=== PATIENT | female | born 1975 | race Caucasian/White ===

== ENCOUNTER 2020-10-10 16:27 | Outpatient (CLI) | payer OTHER, SELFPAY ==
--- NOTE | ~2020-10-10 | MM_ITS ---
EXAMINATION: MM screening avi BI w arjun HISTORY: Screening TECHNIQUE: Craniocaudal and mediolateral oblique 3-D tomosynthesis images were obtained and synthetic 2-D images were generated. CAD analysis was submitted and interpreted. COMPARISON: Comparison to multiple prior studies sequentially, with oldest reviewed study dated 02/18. BREAST PARENCHYMAL COMPOSITION: The breasts are heterogenously dense, which may obscure small masses FINDINGS: There is no evidence of suspicious mass, calcification, or architectural distortion to sugg est malignancy in either breast. There has been no suspicious interval change. IMPRESSION: 1. No mammographic evidence of malignancy. 2. Recommend routine screening mammography in one year. BI-RADS Category 1: Negative Reviewed, dictated and finalized at location A. 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
== END 2020-10-10 16:28 | disposition home or self-care (01) ==
LOC: ANHIMG 16:29
PROVIDERS: PCP Family Medicine; Visit Provider Obstetrics & Gynecology Gynecology
DX: Z12.31 Encounter for screening mammogram for malignant neoplasm of breast (principal)
CPT/HCPCS: 77063; 77067

== ENCOUNTER 2021-04-19 16:22 | Emergency (ER) | payer OTHER, SELFPAY ==
--- NOTE | ~2021-04-19 | CT_ITS ---
EXAMINATION: CT abdomen pelvis w con DATE: 04/19/2021 20:30 INDICATION: Abdominal pain TECHNIQUE: Computed tomography (CT) of the abdomen and pelvis was performed with 100 cc Omnipaque 350 intravenous contrast. The dose-length product was 202.01 mGy-cm. Automated exposure control and iterative reconstruction technique were employed. COMPARISON: CT dated 06/03/2019. FINDINGS: Lung bases are unremarkable. No significant pleural or pericardial effusion. There is abnor mal thickening of the gastric body and pylorus. No obstruction. No significant vascular abnormality. No free air or free fluid. Status post cholecystectomy. Fatty infiltration of the liver. The spleen, pancreas, adrenal glands an d kidneys are unremarkable. No significant vascular abnormality. Mildly enlarged left inguinal lymph node, likely reactive. IMPRESSION: 1. Abnormal thickening of the gastric wall, compatible with gastritis. 2: Left inguinal lymphadenopathy, likely reactive. Reviewed, dictated and finalized at location A.
[2021-04-19 16:31] VITALS: BP 132/75; PULSE 100; RESP 18; TEMP 36.4; O2SAT 97
[2021-04-19 17:13] LABS: Basophils Percent Auto 0.2 % (0.2-1.2); Hematocrit 47.9 % (37.0-47.0); Hemoglobin 16.3 g/dL (12.0-15.0); Immature Granulocyte Absolute 0.08 K/mm3 (0.00-0.031); Immature Granulocyte Percent A 0.5 % (0-0.5); Lymphocytes Absolute Auto 1.14 K/mm3 (0.9-3.2); Lymphocytes Percent Auto 7.1 % (18.3-44.2); Mean Corpuscular Hemoglobin 32.8 pg (26-34); Mean Corpuscular Volume 96.4 fl (80-100); Mean Platelet Volume 9.6 fl (7.4-10.4); Monocytes Absolute Auto 0.8 K/mm3 (0.1-0.6); Neutrophils Absolute Auto 14.1 K/mm3 (1.3-6.7); Neutrophils Percent Auto 87.2 % (45.5-73.1); Platelet Count Result 328 k/mm3 (150-375); Red Blood Count 4.97 M/mm3 (4.2-5.4); Red Cell Distribution Width 11.6 % (11.5-14.5); White Blood Count 16.1 K/mm3 (4.5-10.0)
[2021-04-19] MEDS: DICYCLOMINE HCL INJ 20 MG/2 ML VIAL IM (18:22)
[2021-04-19] MEDS: ONDANSETRON INJ 4 MG/2 ML VIAL IV PUSH ×2 (18:26→20:13)
[2021-04-19] MEDS: SODIUM CHLORIDE 0.9% IV 1,000 ML 999 ML IV CONT (18:26)
[2021-04-19 19:07] LABS: Add Urine Microscopic? YES; Appearance Urine Clear (Clear); Bilirubin Urine 1+ (Negative); Blood Urine Negative (Negative); Color Urine Amber (Yellow); Glucose Urine UA Negative (Negative); Ketones Urine 2+ mg/dL (Negative); Leukocyte Esterase Ur Negative LEU/UL (Negative); Mucus Urine Heavy /lpf; Nitrate Urine Negative (Negative); Protein Urine 3+ mg/dL (Negative); Specific Grav Ur 1.026 (1.001-1.035); Squamous Epithelial Cell Urine Many /hpf (Few); WBC Urine 0-3 /hpf
[2021-04-19 20:24] LABS: Estimated CRCL calculation 67 ml/min; Estimated Glomerular Filt Rate > 60
--- NOTE | 2021-04-19 20:32 | ED.GENADULT ---
HPI - General Adult General Chief complaint: Abdominal Pain Stated complaint: Vomting, epigastric pain Time Seen by Provider: 04/19/21 17:56 History of Present Illness HPI narrative: Patient is a 45-year-old female presents the emergency department with chief complaint of abdominal pain. Patient reports that she has had a fullness feeling in her lower esophagus and is afraid that she may have something stuck in her esophagus. Patient reports she is unable to swallow her own secretions reports that she has upper epigastric type pain with this reports she has had some nausea and vomiting denies diarrhea reports that she has had her gallbladder removed in the past patient denies prior food impactions. Related Data Allergies Allergy/AdvReac Type Severity Reaction Status Date / Time No Known Allergies Allergy Unverified 04/19/21 16:31 Review of Systems Review of Systems: A 10 system review of systems was completed on the patient and is negative except for what is stated in the HPI. Nursing and ancillary documentation was reviewed. Exam Narrative: GENERAL: Well-appearing, well-nourished, and in no acute distress. HEAD: Normocephalic, atraumatic. EYES: PERRLA and EOMI. ENT: Nares clear, no rhinorrhea or epistaxis. Mucous membranes moist. NECK: Supple. CHEST: Clear to auscultation. No respiratory distress. HEART: Regular rate and rhythm. No murmur heard. Normal peripheral pulses. ABDOMEN: Soft, diffuse mild tenderness to palpation, nondistended, normal active bowel sounds. EXTREMITIES: Normal range of motion. No edema. SKIN: Warm, dry, no rash. NEURO: No focal deficits. Alert and oriented x3. PSYCH: Normal mood and affect. Course Vital Signs Vital signs: Vital Signs Temperature 36.4 C L 04/19/21 16:31 Pulse Rate 100 04/19/21 16:31 Respiratory Rate 18 04/19/21 16:31 Blood Pressure 132/75 04/19/21 16:31 Pulse Oximetry 97 04/19/21 16:31 Temperature 36.4 C L 04/19/21 16:31 Pulse Rate 100 04/19/21 16:31 Respiratory Rate 18 04/19/21 16:31 Blood Pressure 132/75 04/19/21 16:31 Pulse Oximetry 97 04/19/21 16:31 Medical Decision Making Vital Signs Vital Signs: Vital Signs Temperature 36.4 C L 04/19/21 16:31 Pulse Rate 100 04/19/21 16:31 Respiratory Rate 18 04/19/21 16:31 Blood Pressure 132/75 04/19/21 16:31 Pulse Oximetry 97 04/19/21 16:31 Temperature 36.4 C L 04/19/21 16:31 Pulse Rate 100 04/19/21 16:31 Respiratory Rate 18 04/19/21 16:31 Blood Pressure 132/75 04/19/21 16:31 Pulse Oximetry 97 04/19/21 16:31 Lab Data Result diagrams: 04/19/21 16:56 04/19/21 20:22 Labs: Lab Results 04/19/21 04/19/21 04/19/21 Range/Units 16:56 18:31 20:02 WBC 16.1 H (4.5-10.0) K/mm3 RBC 4.97 (4.2-5.4) M/mm3 Hgb 16.3 H (12.0-15.0) g/dL Hct 47.9 H (37.0-47.0) % MCV 96.4 (80-100) fl MCH 32.8 (26-34) pg MCHC 34.0 (32-36) g/dl RDW 11.6 (11.5-14.5) % Plt Count 328 (150-375) k/mm3 MPV 9.6 (7.4-10.4) fl Immature Gran % (Auto) 0.5 (0-0.5) % Neut % (Auto) 87.2 H (45.5-73.1) % Lymph % (Auto) 7.1 L (18.3-44.2) % Ward % (Auto) 5.0 (2.6-8.5) % Eos % (Auto) 0.0 (0-4.4) % Baso % (Auto) 0.2 (0.2-1.2) % Lymph # (Auto) 1.14 (0.9-3.2) K/mm3 Ward # (Auto) 0.8 H (0.1-0.6) K/mm3 Eos # (Auto) 0.0 (0-0.3) K/mm3 Baso # (Auto) 0.0 (0.0-0.1) K/mm3 Abs Immat Gran (auto) 0.08 H (0.00-0.031) K/mm3 Absolute Neuts (auto) 14.1 H (1.3-6.7) K/mm3 Absolute Nucleated RBC 0.0 (0.0-0.012) K/mm3 Nucleated RBC % 0.0 (0.0-0.2) % Sodium 137 (137-145) mmol/L Potassium 3.5 (3.4-5.0) mmol/L Chloride 100 (98-107) mmol/L Carbon Dioxide 27 (22-30) mmol/L Anion Gap 10 (8-16) mmol/L BUN 10 (7-17) mg/dL Creatinine 0.70 (0.7-1.0) mg/dL Estim Creat Clear Calc 67 ml/min Estimated GFR > 60 (59 - ) Glucose 119 H (
--- NOTE | 2021-04-19 20:56 | PC.NURSE ---
Pt c/o increased nausea after CT. Rates abd pain 7/10, requesting pain medication. EDP notified.
[2021-04-19 21:04] LABS: Alanine Aminotransferase 15 U/L (4-35); Albumin Level 4.5 g/dL (3.5-5.1); Alkaline Phosphatase 82 U/L (38-126); Anion Gap 10 mmol/L (8-16); Aspartate Amino Transferase 27 U/L (14-36); Bilirubin,Total 0.3 mg/dL (0.2-1.3); Blood Urea Nitrogen 10 mg/dL (7-17); Calcium 9.4 mg/dL (8.4-10.2); Carbon Dioxide 27 mmol/L (22-30); Chloride 100 mmol/L (98-107); Estimated CRCL calculation 67 ml/min; Estimated Glomerular Filt Rate > 60; Glucose 119 mg/dL (65-110); Lipase 19 U/L (23-300); Potassium 3.5 mmol/L (3.4-5.0); Sodium 137 mmol/L (137-145)
[2021-04-19] MEDS: PROCHLORPERAZINE EDISYLATE 10 MG/2 ML VIAL IV PUSH (21:15)
[2021-04-19] MEDS: PANTOPRAZOLE SODIUM IV 40 MG VIAL IV PUSH (21:15)
[2021-04-19] MEDS: MORPHINE SULFATE (*CRX) 4 MG/ML INJ IV PUSH (21:15)
[2021-04-19 22:00] VITALS: BP 127/84; PULSE 62; RESP 16; O2SAT 94
== END 2021-04-19 22:00 | disposition home or self-care (01) ==
PROVIDERS: Emergency Medicine; Emergency Provider Emergency Medicine; PCP Family Medicine
DX: K29.00 Acute gastritis without bleeding (principal)
CPT/HCPCS: 36415; 74177; 80053; 81001; 81025; 83690; 85025; 96361; 96372; 96374; 96375; 96376; 99284; C9113; J0500; J0780; J2270; J2405; J7030; Q9967

== ENCOUNTER 2021-10-22 14:38 | Outpatient (CLI) | payer OTHER, SELFPAY ==
--- NOTE | ~2021-10-22 | MM_ITS ---
EXAMINATION: MM screening [facility] BI w arjun HISTORY: Screening mammogram TECHNIQUE: Craniocaudal and mediolateral oblique 3-D tomosynthesis images were obtained and synthetic 2-D images were generated. CAD analysis was submitted and interpreted. COMPARISON: 10/10/2020, 07/21/2019, 05/01/2018 BREAST PARENCHYMAL COMPOSITION: There are scattered areas of fibroglandular density. FINDINGS: There is no evidence of suspicious mass, calcification, or architectural distortion to sugg est malignancy in either breast. There has been no suspicious interval change. IMPRESSION: 1. No mammographic evidence of malignancy. 2. Recommend routine screening mammography in one year. BI-RADS Category 1: Negative Reviewed, dictated and finalized at location A.
== END 2021-10-22 14:39 | disposition home or self-care (01) ==
PROVIDERS: PCP Family Medicine; Visit Provider Obstetrics & Gynecology Gynecology
DX: Z12.31 Encounter for screening mammogram for malignant neoplasm of breast (principal)
CPT/HCPCS: 77063; 77067

== ENCOUNTER 2022-02-13 01:29 | Day surgery (SDC) | payer OTHER, SELFPAY ==
[2022-01-25 15:06] VITALS: BMI 22.5
[2022-02-13 09:32] VITALS: BP 120/75; PULSE 71; RESP 18; TEMP 36.6; O2SAT 99
[2022-02-13] MEDS: LACTATED RINGERS 1,000 ML 150 ML IV CONT (09:44)
--- NOTE | 2022-02-13 09:51 | P.PNAN_ITS ---
Anes - Initial Pre Proc Eval Procedure: Operation Date: 02/13/22 11:00 Proposed Procedures p Screening Colonoscopy - Juvencio Gan MD Date/Time: 02/13/22 09:51 Surgeon: Juvencio Gan MD Pre Op Diagnosis: neoplasm screening Patient Data Age: 46 Gender: F Height: 1.57 m Weight: 56.1 kg Last Vital Signs Temp 36.6 C 02/13/22 09:32 Pulse 71 02/13/22 09:32 Resp 18 02/13/22 09:32 BP 120/75 02/13/22 09:32 Pulse Ox 99 02/13/22 09:32 O2 Del Method Room Air 02/13/22 09:32 Allergies Allergy/AdvReac Type Severity Reaction Status Date / Time No Known Allergies Allergy Unverified 02/13/22 09:31 Home Medications Medication Instructions Recorded Confirmed Type atorvastatin 10 mg tablet (Lipitor) 10 tablet PO DAILY 01/25/22 01/25/22 History dextroamphetamine-amphetamine ER 10 cap PO DAILY 01/25/22 01/25/22 History 10 mg 24hr capsule,extend release (Adderall XR) lamotrigine 100 mg tablet 100 tablet PO 2XD 01/25/22 01/25/22 History (Lamictal) lurasidone 80 mg tablet (Latuda) 80 tablet PO DAILY 01/25/22 01/25/22 History oxybutynin chloride 5 mg 5 tablet PO DAILY 01/25/22 01/25/22 History tablet,extended release 24 hr (Ditropan XL) prazosin 2 mg capsule (Minipress) 2 cap PO DAILY 01/25/22 01/25/22 History trazodone 100 mg tablet 100 tablet PO DAILY 01/25/22 01/25/22 History vortioxetine 10 mg tablet 10 tablet PO DIRECTED 01/25/22 01/25/22 History (Trintellix) Patient hx anesthesia problems: none Family hx anesthesia problems: none Results Review: All pre-operative results and documents have been reviewed as part of the pre- operative evaluation. [facility] Past Medical History Medical History (Updated 02/13/22 @ 09:52 by Hola Bo MD) Hyperlipidemia Surgical History Surgical History (Updated 02/13/22 @ 09:52 by Hola Bo MD) H/O laparoscopy S/P cervical spinal fusion Social History Social History Smoking packs per day: 2 Smoking cigarettes per day: 40.0 Years smoked: 15 Smoking pack-years: 30.00 Smoking status: Former smoker Tobacco type: cigarettes Alcohol use details: Couple times a year Substance use: current Substance use type: marijuana Living arrangements: with family Spiritual care concerns: No Anes - Eval Final PreProcedure Day of Procedure 02/13/22 09:51 Patient weight: normal Heart: regular rate and rhythm Lungs: clear to auscultation Airway: Mallampati scale class II and special considerations poor extension Neurological: alert and oriented Last oral intake: >/= 8 hours ASA classification: II Emergent: no Anesthetic plan: proceed Anesthesia type and monitoring: general GIVS and standard monitoring Results Review: All pre-operative results and documents have been reviewed as part of the pre- operative evaluation. Informed Consent: The patient's anesthetic plan and its attendant risks and benefits were discussed with the patient/family/POA. Questions were solicited and answers provided to the satisfaction of the patient/family/POA.
--- NOTE | 2022-02-13 10:29 | PM.HPGS ---
History of Present Illness History of Present Illness Consent: Risks, benefits, and alternatives have been discussed and questions answered. Patient agrees to proceed with procedure. Chief complaint: neoplasm screening Narrative: Vilma Linn is a 46 year old female here for screening colonoscopy, had one 5 years ago Review of Systems Constitutional: Constitutional: Denies headache(s) and Denies weakness Eyes: Eyes: Denies blurry vision ENT: Reports Normal hearing present, Denies headache(s) and Denies neck pain Cardiovascular: Cardiovascular: Denies chest pain and Denies dyspnea Respiratory: Respiratory: Denies dyspnea Gastrointestinal: Gastrointestinal: Reports no additional gastrointestinal complaints Genitourinary: Genitourinary: Denies dysuria Musculoskeletal: Musculoskeletal: Denies neck pain Integumentary/Breasts: Skin/Breast: Denies dry skin Neurologic: Reports Normal hearing present, Denies headache(s) and Denies weakness Psychiatric: Psychiatric: Denies anxiety Endocrine: Endocrine: Denies change in body appearance Hematologic/Lymphatic: Hematologic/Lymphatic: Denies easy bleeding Allergic/Immunologic: Allergic/Immunologic: Denies urticaria PMFSH Past Medical History Medical History (Updated 02/13/22 @ 10:30 by Juvencio Gan MD) Colon cancer screening Hyperlipidemia Surgical History Surgical History (Updated 02/13/22 @ 09:52 by Hola Bo MD) H/O laparoscopy S/P cervical spinal fusion Social History Social History Smoking packs per day: 2 Smoking cigarettes per day: 40.0 Years smoked: 15 Smoking pack-years: 30.00 Smoking status: Former smoker Tobacco type: cigarettes Alcohol use details: Couple times a year Substance use: current Substance use type: marijuana Living arrangements: with family Spiritual care concerns: No Meds Home Medications and Allergies Home Medications Medication Instructions Recorded Confirmed Type atorvastatin 10 mg tablet (Lipitor) 10 tablet PO DAILY 01/25/22 01/25/22 History dextroamphetamine-amphetamine ER 10 cap PO DAILY 01/25/22 01/25/22 History 10 mg 24hr capsule,extend release (Adderall XR) lamotrigine 100 mg tablet 100 tablet PO 2XD 01/25/22 01/25/22 History (Lamictal) lurasidone 80 mg tablet (Latuda) 80 tablet PO DAILY 01/25/22 01/25/22 History oxybutynin chloride 5 mg 5 tablet PO DAILY 01/25/22 01/25/22 History tablet,extended release 24 hr (Ditropan XL) prazosin 2 mg capsule (Minipress) 2 cap PO DAILY 01/25/22 01/25/22 History trazodone 100 mg tablet 100 tablet PO DAILY 01/25/22 01/25/22 History vortioxetine 10 mg tablet 10 tablet PO DIRECTED 01/25/22 01/25/22 History (Trintellix) Allergies Allergy/AdvReac Type Severity Reaction Status Date / Time No Known Allergies Allergy Unverified 02/13/22 09:31 Vital Signs Vital Signs - 24 hr 02/13/22 09:32 Temperature 98 F Pulse Rate 71 Respiratory Rate 18 Blood Pressure 120/75 Pulse Oximetry 99 Oxygen Delivery Room Air Exam Const: General: comfortable and no acute distress HENMT: General nose exam: Normal nares present Eyes: General: appearance normal, both eyes and all related structures Neck: Neck: no JVD Resp: Auscultation: clear to auscultation bilaterally Cardio: Rate: regular rate Rhythm: regular rhythm GI: Inspection: non-distended GI Palp: Yes Soft to palpation Skin: General skin exam: normal color Neuro: General: gait normal Speech: normal speech Extrem: General: normal to inspection Psych: Mental Status: mental status grossly normal Assessment and Plan Assessment and plan (1) Colon cancer screening: Code(s): Z12.11 - Encounter for screening for malignant neoplasm of colon Status: Acute Assessment and Plan: colonoscopy
[2022-02-13 10:50] VITALS: BP 91/53; PULSE 65; RESP 21; O2SAT 97
[2022-02-13 11:00] VITALS: BP 125/89; PULSE 78; RESP 23; O2SAT 99
[2022-02-13 11:10] VITALS: BP 120/79; PULSE 70; RESP 18; O2SAT 100
== END 2022-02-13 11:21 | disposition home or self-care (01) ==
PROVIDERS: PCP Family Medicine; Visit Provider Internal Medicine Gastroenterology
PROC: 0DJD8ZZ Inspection of Lower Intestinal Tract, Via Natural or Artificial Opening Endoscopic (ICD-10-PCS; CPT 45378; principal; 2022-02-13 11:00)
DX: Z12.11 Encounter for screening for malignant neoplasm of colon (principal); E78.5 Hyperlipidemia, unspecified; Z98.1 Arthrodesis status; Z87.891 Personal history of nicotine dependence; F12.90 Cannabis use, unspecified, uncomplicated
CPT/HCPCS: 45378; J2001; J2704; J7120

== ENCOUNTER 2024-07-20 08:54 | Outpatient (CLI) | payer OTHER, SELFPAY ==
--- NOTE | ~2024-07-20 | MM_ITS ---
EXAMINATION: MM screening avi BI w arjun HISTORY: Screening TECHNIQUE: Craniocaudal and mediolateral oblique 3-D tomosynthesis images were obtained and synthetic 2-D images were generated. CAD analysis was submitted and interpreted. COMPARISON: Comparison to multiple prior studies sequentially, with oldest reviewed study dated 02/18. BREAST PARENCHYMAL COMPOSITION: The breasts are heterogeneously dense, which may obscure small masses . FINDINGS: There is no evidence of suspicious mass, calcification, or architectural distortion to sugg est malignancy in either breast. There has been no suspicious interval change. IMPRESSION: 1. No mammographic evidence of malignancy. 2. Recommend routine screening mammography in one year. BI-RADS Category 1: Negative Reviewed, dictated and finalized at location B. 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
== END 2024-07-20 08:55 | disposition home or self-care (01) ==
PROVIDERS: PCP Family Medicine; Visit Provider Obstetrics & Gynecology Gynecology
DX: Z12.31 Encounter for screening mammogram for malignant neoplasm of breast (principal)
CPT/HCPCS: 77063; 77067